=== PATIENT | male | born 2005 | race Two or more races ===

== ENCOUNTER 2024-08-08 19:44 | Emergency (ER) | payer OTHER, SELFPAY ==
[2024-08-08 19:48] VITALS: BP 111/67
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
[2024-08-08 23:19] VITALS: BP 97/81; BMI 31.9
== END 2024-08-08 23:44 | disposition home or self-care (01) ==
LOC: EMR 19:44
PROVIDERS: EMERGENCY PHYSICIAN Student in an Organized Health Care Education/Training Program; FAMILY PHYSICIAN Internal Medicine
DX: M54.9 Dorsalgia, unspecified (principal); Y04.2XXA Assault by strike against or bumped into by another person, initial encounter
CPT/HCPCS: 99284; 70450; 72050; 72100